=== PATIENT | male | born 1945 | race Caucasian/White ===

== ENCOUNTER 2021-08-14 22:26 | Emergency (ER) | payer MEDICARE, BC ==
[~2021-08-14] VITALS: Ht 177.8 cm; Wt 103.8 kg
[2021-08-15 00:23] LABS: ALBUMIN 4.1 g/dL (3.4-4.8); POTASSIUM 4.1 mmol/L (3.5-5.1)
[2021-08-15 00:25] LABS: TOTAL PROTEIN 7.8 g/dL (6.2-8.1)
[2021-08-15 00:26] LABS: HEMATOCRIT 40.3 % (42.0-52.0); HEMOGLOBIN 14.1 g/dL (13.5-18.0); MEAN CELL VOLUME 90 fl (78-100); MEAN CORPUSCULAR HEMOGLOBIN 32 pg (27-31); MEAN CORPUSCULAR HGB CONC 35 g/dL (33-37); MEAN PLATELET VOLUME 9.3 fl (7.4-10.4); PLATELET COUNT 148 K/mm3 (130-400); RED BLOOD COUNT 4.47 M/mm3 (4.20-5.60); RED CELL DISTRIBUTION WIDTH 12.9 % (11.5-14.5); WHITE BLOOD COUNT 11.2 K/mm3 (4.8-10.8)
[2021-08-15 00:27] LABS: TOTAL BILIRUBIN 0.5 mg/dL (0.2-1.2)
[2021-08-15 00:48] LABS: BAND 2 % (0-10); LYMPHOCYTE 5 % (20-51); MONOCYTE 5 % (3-10); NEUTROPHILS 88 % (42-75)
[2021-08-15 01:10] LABS: PH-URINE 6.5 (5.0 - 8.0); URINE APPEARANCE CLEAR; URINE BILIRUBIN NEGATIVE (NEGATIVE); URINE BLOOD 50 ery/uL (NEGATIVE); URINE COLOR YELLOW; URINE GLUCOSE NEGATIVE (NEGATIVE); URINE KETONE NEGATIVE (NEGATIVE); URINE LEUKOCYTE ESTERASE NEGATIVE (NEGATIVE); URINE NITRATE NEGATIVE (NEGATIVE); URINE PROTEIN(semi-quant) NEGATIVE (NEGATIVE); URINE UROBILINOGEN NORMAL (NORMAL); URINE WBC 0-1 /hpf (0-3)
[2021-08-15] MEDS ORDERED: PERCOCET 325 MG1 TA2 PO (04:10)
[2021-08-15] MEDS ORDERED: FLOMAX0.4 MG PO (04:10)
[2021-08-15 04:32] VITALS: BP 178/102
== END 2021-08-15 04:34 | disposition home or self-care (01) ==
LOC: ED 22:26
PROVIDERS: Family Medicine
DX: N13.2 Hydronephrosis with renal and ureteral calculous obstruction (principal); I10 Essential (primary) hypertension; R73.9 Hyperglycemia, unspecified
CPT/HCPCS: J1885; Q9967